=== PATIENT | female | born 1975 | race Caucasian/White ===

== ENCOUNTER 2018-11-03 06:25 | Inpatient (IN) | payer OTHER ==
[~2018-11-03] VITALS: Ht 162.6 cm; Wt 78.6 kg
[2018-11-08] VITALS (46 sets, daily range): BP systolic 111–176; BP diastolic 58–84; PULSE 83–123; TEMP 98.2–98.9
[2018-11-08 07:52] LABS: MEAN CELL VOLUME 81 fl (80.0-100.0); MEAN CORPUSCULAR HGB CONC 32 g/dl (33.0-37.0); MEAN PLATELET VOLUME 8.7 fl (7.4-10.4); PLATELET COUNT 211 K/mm3 (130-400); RED BLOOD COUNT 3.83 M/mm3 (4.10-5.30); REDCELL DISTRIBUTION WIDTH-CV 17.2 % (11.5-14.5)
[2018-11-08 07:53] LABS: HEMATOCRIT 30.9 % (37.0-47.0); HEMOGLOBIN 9.9 g/dl (12.5-16.0); MEAN CORPUSCULAR HEMOGLOBIN 26 pg (27.0-31.0)
--- NOTE | 2018-11-08 07:56 | NUR ---
0730 PATIENT HERE FOR INDUCTION. ASSESSMENT COMPLETED. VS WNL. EFM ON FHT 130 BABY VERY ACTIVE. GOOD ACCELERATIONS NOTED. PATIENT IS GBS+ BUT REFUSES ANTIBIOTICS IN LABOR. DISCUSSED ALL RISKS WITH BABY, BUT PATIENT REMAINS TO REFUSE NEED FOR ANTIBIOTICS. ALL CONSENTS SIGNED AT THIS TIME. IV STARTED IN LEFT WRIST AND BLOOD DRAWN AT THIS TIME.
[2018-11-08 08:14] LABS: ANISOCYTOSIS 1+; BAND 2 % (0-10); LYMPHOCYTE 17 % (20.0-51.0); NEUTROPHILS 72 % (42.0-75.2); PLATELET ESTIMATE NORMAL (NORMAL)
--- NOTE | 2018-11-08 15:03 | NUR ---
1430 CONTRACTIONS GETTING MORE INTENSE.READY FOR EPIDURAL. MONET BAXTER CALLED TO COME. IVF LR 500 CC BOLUS GIVEN AT THIS TIME.
--- NOTE | 2018-11-08 15:05 | NUR ---
1464 PATIENT SITS UP FOR EPIDURAL PLACEMENT. MONET GILBERT PANEL BUILDER AT BEDSIDE TO TALK WITH PATIENT. EPIDURAL PLACED AT HTIS TIME. PATIENT TOLERATES WELL. DENIES NEEDS, SEE PANEL BUILDER NOTES FOR QUESTIONS.
--- NOTE | 2018-11-08 21:00 | NUR ---
1714- Bedside report from [employer]. remains on unit. 1814- SVE with bloody show by . Patient repositioned WL. 1914- SVE - by . Pitocin initiated per protocol per . 2029- SVE Complete/0 with swollen anterior lip. updated. 2044- SVE Complete/0 by . Garcia removed. 2049- begins pushing with patient during contractions. RN and Nursery RN, Hiren, at bedside. 2105- of viable baby boy. Cord clamped and cut by . Cord blood obtained. denies need for cord gasses at this time. Pitocin off. 2109- Spontaneous delivery of placenta. Pitocin infusing at 333 ml/hr. Fundus massaged to firm by . Perineum intact. Pericare provided. Ice pack applied. 2114- PP Recovery period started.
[2018-11-08] MEDS ORDERED: IBU600 MG PO (21:24)
[2018-11-09] VITALS: BP 125/66; PULSE 114; TEMP 99.1
[2018-11-09 10:20] VITALS: BP 114/72; PULSE 101; TEMP 98.3
--- NOTE | 2018-11-09 12:27 | NUR ---
stopped by and prayed with mom and dad in room.
[2018-11-09 14:10] VITALS: BP 111/66; PULSE 104; TEMP 97.7
[2018-11-09 21:00] VITALS: BP 100/59; PULSE 90; TEMP 98
--- NOTE | 2018-11-09 21:19 | NUR ---
PT STATES CRAMPING IS BECOMING BAD- PAIN MEDS GIVEN AND WARM BLANKET OFFERED
[2018-11-10 07:13] VITALS: BP 110/65; PULSE 90; TEMP 97.7
== END 2018-11-10 13:35 | disposition home or self-care (01) | DRG 807 ==
LOC: LDRO 06:25 → EDSTATUS 08:08 → LDR 11-08 07:09 → OB 11-09 00:10
PROVIDERS: ADMIT Obstetrics & Gynecology
PROC: 10E0XZZ Delivery of Products of Conception, External Approach (ICD-10-PCS; principal; 2018-11-08)
PROC: 10907ZC Drainage of Amniotic Fluid, Therapeutic from Products of Conception, Via Natural or Artificial Opening (ICD-10-PCS; 2018-11-08)
DX: O34.211 Maternal care for low transverse scar from previous cesarean delivery (principal); Z37.0 Single live birth; O99.824 Streptococcus B carrier state complicating childbirth; O48.0 Post-term pregnancy; Z3A.40 40 weeks gestation of pregnancy; O13.4 Gestational [pregnancy-induced] hypertension without significant proteinuria, complicating childbirth; O99.013 Anemia complicating pregnancy, third trimester; D64.9 Anemia, unspecified; O99.284 Endocrine, nutritional and metabolic diseases complicating childbirth
CPT/HCPCS: J2590; J7120